=== PATIENT | female | born 1950 | race Caucasian/White ===

== ENCOUNTER → 2020-03-06 18:59 | Outpatient (ROUT) | payer MEDICARE, SELFPAY ==
[2020-03-06 19:50] LABS: Cholesterol 147 mg/dL (140-199); Glucose 93 mg/dL (80-110); HDL Cholesterol 97 mg/dL (40-60); LDL Cholesterol Calculated 26 mg/dL (<100); Triglycerides 118 mg/dL (35-150)
[2020-03-06 20:15] LABS: TSH w/ Reflex to FT4 2.76 uIU/mL (0.47-4.68)
== END ==
PROVIDERS: Visit Provider Internal Medicine
DX: E03.9 Hypothyroidism, unspecified (principal); E78.2 Mixed hyperlipidemia
CPT/HCPCS: 80061; 82947; 84443